=== PATIENT | male | born 1930 | race Caucasian/White ===

== ENCOUNTER 2016-06-11 17:55 | Inpatient (IN) | payer MEDICARE, OTHER ==
[~2016-06-11] VITALS: Ht 177.8 cm; Wt 67.9 kg
--- NOTE | ~2016-06-11 | HP ---
PATIENT'S NAME: DANIEL [facility] AGE: 86 Y [address] ROOM: [place] [address] LOCATION: [facility] ADMIT DATE: 06/11/2016 History & Physical DISCHARGE DATE: FAMILY PHYSICIAN: Erick Samaniego MD ATTENDING PHYSICIAN: CANDELARIA RUBIO DATE OF SERVICE: CHIEF COMPLAINT: Mechanical fall. HISTORY OF PRESENT ILLNESS: This is obtained entirely from the accompanying records and ER records. The patient is an 86-year-old male with past medical history as below, who sustained an unwitnessed mechanical fall at a correction facility earlier today. In the ER, he was found to have a right hip fracture, though full x-ray report is not available yet. At this point, the patient does not endorse any chest pain, shortness of breath, nausea, vomiting, diarrhea, chest pain, palpitations, though he is quite demented and alert and oriented x1. REVIEW OF SYSTEMS: All systems have been reviewed to the best of my ability given the patient's dementia and are negative aside from pertinent positives mentioned above. PAST MEDICAL HISTORY: As extracted from accompanying medical records is, 1. Dementia. 2. Coronary artery disease, status post CABG. 3. Paroxysmal atrial fibrillation, on Eliquis. 4. Ischemic cardiomyopathy with an EF of 45%. 5. Dual chamber pacemaker. 6. Benign prostatic hyperplasia. CURRENT MEDICATIONS: 1. Acetaminophen 325. 2. Apixaban 2.5 b.i.d. 3. Aspirin 81. 4. Carboxymethylcellulose. 5. Cholecalciferol. 6. Diltiazem 180 daily. 7. Q-Tussin as needed. PATIENT'S NAME: DANIEL [facility] AGE: 86 Y [address] ROOM: [place] [address] LOCATION: [facility] ADMIT DATE: 06/11/2016 History & Physical DISCHARGE DATE: FAMILY PHYSICIAN: Erick Samaniego MD ATTENDING PHYSICIAN: CANDELARIA RUBIO 8. Levothyroxine 25. 9. Memantine 10 twice a day. 10. Remeron 50 at bedtime. 11. Nitroglycerin as needed. 12. Zocor 40. 13. PreserVision daily. SOCIAL HISTORY: Cannot be obtained due to dementia. FAMILY HISTORY: Cannot be obtained due to dementia. PHYSICAL EXAMINATION: VITAL SIGNS: In the ER, the patient's vital signs were blood pressure 121/68, weight is 71, pulse 93, respirations 18, temperature 97.3, and saturating 92% on room air. GENERAL: Appears as an elderly, flail male, in no acute distress. NEUROLOGICAL: Nonfocal. EYES: Pupils are equal and reactive to light. LYMPHATIC: No cervical lymphadenopathy. ENDOCRINE: No thyromegaly. LUNGS: Clear to auscultation in all solorzano. HEART: Rate is irregularly irregular with no appreciable murmurs, gallops, or rubs. ABDOMEN: Soft, nontender. : No costovertebral angle tenderness. VASCULAR: 2+ pedal pulses. MUSCULOSKELETAL: Deferred. SKIN: Warm and dry. PSYCHIATRIC: The patient is alert and oriented x1. DIAGNOSTIC DATA: Review of the studies from the ER significant for an EKG which shows sinus rhythm with on demand atrial pacing and a right bundle-branch block. Chest x- ray shows some bibasilar scarring versus atelectasis. Lab results are unremarkable. ASSESSMENT AND PLAN: This is an 86-year-old male who has been admitted with mechanical fall and right hip fracture. Individual problems to be addressed as follows: 1. Preoperative optimization. At this point, the patient appears to be well compensated cardiac gabriel. I think getting a perioperative echo would be helpful in managing him postop, though I do not think he needs any further optimization prior to surgery. He is however on Eliquis and we PATIENT'S NAME: FRANTZ SANCHEZ [facility] AGE: 86 Y [address] ROOM: [address] [address] LOCATION: [facility] ADMIT DATE: 06/11/2016 History & Physical DISCHARGE DATE: FAMILY PHYSICIAN: Erick Samaniego MD ATTENDING PHYSICIAN: CANDELARIA RUBIO will defer to the Orthopedic Surgery the amount of time needed to wait for the surgery to be performed. 2. Paroxysmal atrial fibrillation, on anticoagulation. Anticoagulation will be held. We will continue the patient on Cardizem and monitor his heart rate and blood pressures. 3. History of ischemic cardiomyopathy. He appears well compensated. We will continue him on his current medical regimen. 4. History of dementia. Continue on Namenda. I think it would be worthwhile to address his goal status once the family arrives. 5. Symptomatic control. We will provide the patient with gentle doses of opioids as he is not terribly uncomfortable right now as well as with antiemetics and stool regimen. Additional management will depend on clinical course. Time dedicated to this patient's encounter is 25 minutes. MD YAN RING/sanya /[id number] D: [id number] T: [id number] HISTORY & PHYSICAL
--- NOTE | ~2016-06-11 | CON ---
PATIENT'S NAME: EVER [facility] AGE: 86 Y [address] ROOM: [address] [address] LOCATION: [facility] [place] ADMIT DATE: 06/11/2016 Consultation DISCHARGE DATE: FAMILY PHYSICIAN: Erick Samaniego MD ATTENDING PHYSICIAN: CANDELARIA RUBIO DATE OF CONSULTATION: 06/12/2016 REFERRING PHYSICIAN: CONNIE CALL MD CHIEF COMPLAINT: Right hip and groin pain. HISTORY OF PRESENT ILLNESS: Ever is a pleasant 86-year-old, gentleman who sustained an unwitnessed mechanical fall at a correction facility yesterday afternoon. The patient has severe dementia at baseline, though does confer that he does have right hip pain. He is accompanied by his , Spring, who is also a patient of mine. She reports that though the fall was unwitnessed, he has been found down on more than one occasion. It has been difficult for the facility to discern whether or not these are mechanical falls, or if the patient actually gets down onto his knees on his own accord. The reports that on one occasion, he was found down, and reported that he was changing a tire, despite the fact that he was sitting in his room in the assisted living facility. He was brought to the emergency room and plain x-rays of the right hip were obtained. The ER physician evaluating the patient diagnosed him with a right hip fracture. Currently, the patient denies any constitutional symptoms such as fever, chills, or night sweats. He also denies any dizziness, chest pain, shortness of breath, blurred vision, nausea, vomiting, or diarrhea. The patient denies any previous trauma to the right hip or surgery. His reports that he is an independent ambulator at baseline, not requiring use of any durable medical equipment. REVIEW OF SYSTEMS: A 10-point review of systems is otherwise as mentioned above. The patient issue is musculoskeletal, and pertains to the right lower extremity. He has hip and groin pain and discomfort with motion at the level of the hip. PAST MEDICAL HISTORY: Severe dementia; coronary artery disease, status post CABG; paroxysmal atrial fibrillation, on Eliquis; ischemic cardiomyopathy with an ejection fraction of 45%; dual-chamber pacemaker; benign prostatic hyperplasia. PAST SURGICAL HISTORY: PATIENT'S NAME: DANIEL, [facility] AGE: 86 Y [address] ROOM: [place] [address] LOCATION: [facility] [place] ADMIT DATE: 06/11/2016 Consultation DISCHARGE DATE: FAMILY PHYSICIAN: Erick Samaniego MD ATTENDING PHYSICIAN: CANDELARIA RUBIO CABG. CURRENT MEDICATIONS: 1. Acetaminophen. 2. Apixaban. 3. Aspirin. 4. Carboxymethylcellulose. 5. Calciferol. 6. Diltiazem. 7. Q-Tussin. 8. Levothyroxine. 9. Memantine. 10. Remeron. 11. Nitroglycerin. 12. Zocor. 13. PreserVision. SOCIAL HISTORY: The denies any use of alcohol, tobacco, or illicit drug use. FAMILY HISTORY: There is history of hypertension and heart disease on his side of the family. PHYSICAL EXAMINATION: VITAL SIGNS: Temperature of 97.3, pulse is 93, blood pressure 121/68, O2 saturation 92% on room air, weight is 71 kilos. GENERAL: The patient is awake and alert x2. He is in no acute distress. He is not conversing with me. HEENT: Normocephalic and atraumatic. Extraocular movements are intact. PERRLA. Moist mucous membranes. The oropharyngeal airway is clear. NECK: Supple. Trachea is in the midline. CARDIOVASCULAR: Regular rate and rhythm. CHEST: Normal symmetric respirations were observed bilaterally. ABDOMEN: Soft, nontender, and nondistended. PELVIS: Stable. MUSCULOSKELETAL: Right lower extremity, focal examination of the patient's right lower extremity reveals that he is grossly neurologically intact distally. There is palpable dorsalis pedal and posterior tibial pulses. The patient was actively able to dorsiflex and plantar flex the ankle and range his toes. He has a positive log roll test. This elicits pain and discomfort at the level of the hip. There is pain with manipulation of the right hip as well. Compartments of the thigh, leg, and foot are soft. Left lower extremity: Focal examination of the patient's left lower extremity reveals that he is grossly neurologically intact distally. Compartments of the thigh, leg, and foot are soft. There is palpable dorsalis pedal and posterior tibial PATIENT'S NAME: DANIEL [facility] AGE: 86 Y [address] ROOM: [address] [place] [id number] LOCATION: [facility] [place] ADMIT DATE: 06/11/2016 Consultation DISCHARGE DATE: FAMILY PHYSICIAN: Erick Samaniego MD ATTENDING PHYSICIAN: CANDELARIA RUBIO pulses. Good capillary refill in the toes. The patient is actively able to dorsiflex and plantar flex his left ankle and range his toes. Sensation is intact to light touch bilaterally through the SPN/DPN and tibial nerve distributions. LABORATORY VALUES: CBC: Hemoglobin of 12.2, hematocrit of 37.8, white blood cell count of 9.5, platelet count of 142. Chem-7 reveals sodium of 144, potassium 4.2, chloride of 110, CO2 of 27, BUN 29, creatinine 1.0, and glucose of 87. IMAGING STUDIES: Plain radiographs of the right hip were obtained. There is evidence of a nondisplaced transcervical fracture of the femoral neck. IMPRESSION: Right nondisplaced transcervical fracture of the femoral neck. PLAN: I had a long discussion with the patient and the patient's who makes his medical decisions at the bedside. I explained the patient broke his hip. I am recommending a closed reduction and pinning procedure today. I have discussed the risks, benefits, and alternatives of pursuing a surgical intervention with the patient and his in detail. I have discussed the risks of anesthesia, infection, bleeding, and/or injury to neurovascular structures about the right lower extremity. They have expressed understanding of this. They have elected to proceed with surgery. Currently, the patient is awaiting completion of a medical workup. We are awaiting the results of a 2D echo being performed this morning. Provided the patient is cleared, we will proceed with surgery as soon as this afternoon. He is currently n.p.o. He will remain on bed rest for now. There is a Martino catheter in place. DVT prophylaxis in the form of Eliquis will be held going forward. I do not feel that it would be gabriel to delay treatment on account of the fact that he is anticoagulated with Eliquis at this time. His weightbearing status postoperatively may be a challenge seeing that the patient is unable to follow commands. He would otherwise be toe-touch weightbearing after surgery, with use of a rolling walker. I discussed my concerns with the patient's regarding his postoperative weightbearing status. She expressed understanding of this. I have answered all of their questions today at the bedside to their satisfaction. We will await medical clearance to proceed with surgery as soon as feasible. CONNIE CALL MD PATIENT'S NAME: EVER [facility] AGE: 86 Y [address] ROOM: [place] [address] LOCATION: [facility] [place] ADMIT DATE: 06/11/2016 Consultation DISCHARGE DATE: FAMILY PHYSICIAN: Erick Samaniego MD ATTENDING PHYSICIAN: CANDELARIA RUBIO/adyl /[id number] d: 06/12/16 0953 t: 06/12/16 1252, CONSULTATION REPORT
--- NOTE | ~2016-06-11 | DS ---
PATIENT'S NAME: FRANTZ SANCHEZ [facility] AGE: 86 Y [address] ROOM: [place] [address] LOCATION: [facility] ADMIT DATE: 06/11/2016 Discharge Summary DISCHARGE DATE: 06/21/2016 FAMILY PHYSICIAN: Erick Samaniego MD ATTENDING PHYSICIAN: Niecy Haider PRINCIPAL DIAGNOSES: 1. Right nondisplaced transcervical fracture of the femoral neck, status post closed reduction and percutaneous pinning. 2. Alzheimer dementia. 3. Paroxysmal atrial fibrillation, on long-term anticoagulation. 4. History of coronary artery disease. 5. History of permanent pacemaker. 6. Chronic congestive heart failure, systolic. 7. Dyslipidemia. 8. Hypothyroidism. HOSPITAL COURSE: Please reference any of the admitting data to the history and physical as dictated by Dr. Jose Tinajero. Briefly, an 86-year-old male with a significant history of Alzheimer dementia, residing at an Alzheimer's Unit, had an unwitnessed mechanical fall suffering a right hip fracture. Admitted by Hospitalist Service, and given risk stratification for anticipated operative fixation of the right hip fracture. A 2D echo showed left ventricular ejection fraction of 40% to 45%. There was [id number] concentric left ventricular hypertrophy, with severe dilation of the right atrium. There was also noted mild pulmonary hypertension. The patient appeared to be euvolemic and optimal for surgery. Orthopedic consultation was obtained. Risks, benefits, and alternatives were discussed. The patient was given preoperative Ancef, and taken to surgery on June 12, where he underwent a closed reduction and percutaneous pinning of the right hip, with the operative films showing proper alignment. Fractured hip postop order sets were utilized. His weightbearing status was toe-touch weightbearing. Physical therapy was ordered, and he was given postoperative Ancef for three doses. In the postoperative phase, the patient did go into atrial fibrillation with a rapid ventricular rate. He was given a Cardizem bolus, as well as IV Lopressor and his electrolytes were optimized. A Cardiology consultation was obtained, and Cardizem drip was started. The DVT prophylactic Lovenox was transitioned to a heparin drip per ACS protocol. By 06/16/2016, his rates were well controlled, and he was taking oral adequately. So, he was started on Eliquis and heparin drip stopped without any complications. His rate controlling medicines were optimized, and he had no further complications. PATIENT'S NAME: FRANTZ SANCHEZ [facility] AGE: 86 Y [address] ROOM: [id number] [place], [place] [address] LOCATION: [facility] ADMIT DATE: 06/11/2016 Discharge Summary DISCHARGE DATE: 06/21/2016 FAMILY PHYSICIAN: Erick Samaniego MD ATTENDING PHYSICIAN: Niecy Haider Also, postoperatively, the patient did have some delirium on top of his dementia causing some behavioral issues in which the patient required some as needed Zyprexa. His narcotic regimen was minimized to just Tylenol with good control. He also had complications following commands with his swallow, so a Speech Therapy consultation was added, which helped both with his swallowing cognitively to the point where he continued to make progress over the next few days. Because of his toe-touch weightbearing status and decreased mobility, his Assisted Living Facility was unable to meet his needs. So, a Residential Facility placement was ordered. Care Management assisted with this and was able to arrange on day of discharge. LABORATORY FINDINGS: Most recent CBC on 06/18/2016 showed a white blood cell count of 5.5, hemoglobin of 11.3; this is up from 10.7 postoperatively, hematocrit of 35.0, and platelet count of 185, up from 118. Most recent chemistry panel showed a glucose of 102, BUN of 19, creatinine of 0.7, sodium of 146, potassium of 4.1, chloride of 110, CO2 of 29, calcium of 8.8, magnesium of 2.1, and GFR greater than 60. Urinalysis showed clear, yellow urine with a specific gravity of 1.025, pH of 6.0, leukocytes negative, nitrites negative, proteins negative, glucose negative, ketones negative, urobilinogen 1, bilirubin negative, blood 10, white blood cells rare, red blood cells of 2 to 5, epithelial of 0 to 2, and bacteria rare. Pre-albumin level was 16. IMAGING: Radiologic imaging showed initial right hip x-ray showing an impacted right femoral neck fracture. Preoperative chest x-ray film with no acute abnormalities. CT of the brain was normal. Postoperative films showed proper anatomic alignment. Postoperative films of chest x-ray was stable and non-acute. Postoperative films of KUB were non-specific, obstruction was not apparent. Echocardiogram: LVEF of 40% to 45% with left ventricle normal in size. There was moderate to severe concentric left ventricular hypertrophy. Diastolic function was indeterminate due to the patient's arrhythmia. There was moderately dilated right ventricle and moderately reduced right ventricular function. The right atrium was severely dilated. There was mild pulmonary hypertension, and the ascending aorta appeared mildly dilated. DISCHARGE MEDICATIONS: 1. Tylenol 500 mg p.o. three times daily. 2. Eliquis 5 mg p.o. twice daily. 3. Aspirin 81 mg p.o. daily. 4. Cardizem 60 mg p.o. three times daily. PATIENT'S NAME: FRANTZ SANCHEZ [facility] AGE: 86 Y [address] ROOM: [id number] [place], [place] [address] LOCATION: [facility] ADMIT DATE: 06/11/2016 Discharge Summary DISCHARGE DATE: 06/21/2016 FAMILY PHYSICIAN: Erick Samaniego MD ATTENDING PHYSICIAN: Niecy Haider 5. Docusate sodium 100 mg p.o. everyday. 6. Levothyroxine 25 mcg p.o. everyday before breakfast. 7. Senna 5 mL p.o. twice daily. 8. Zocor 40 mg tablet, 0.5 tablet p.o. every night at bedtime. 9. Triamcinolone 0.1% cream, apply sparingly topically to areas of eczema daily. 10. Tylenol 650 mg p.o. every six hours as needed. 11. Q-Tussin DM syrup 5 mL to 10 mL p.o. every four hours as needed for cough or congestion. 12. Nitrostat 0.4 mg sublingual as needed one tablet every five minutes of three doses for chest pain. 13. Ultram 50 mg p.o. every eight hours as needed. 14. Hydrocortisone cream 1% to be applied to the affected areas once to twice daily as needed. 15. Namenda 10 mg p.o. twice daily. 16. Remeron 15 mg p.o. every night at bedtime. 17. PreserVision softgels capsules, one capsule p.o. twice daily. 18. Refresh Tears one drop to each eye three times daily. 19. Vitamin D3, 1000 units p.o. everyday. DISCHARGE INSTRUCTIONS: The patient will be discharged to [facility] under the care of his current primary care doctor, Dr. Erick Samaniego. Dr. Samaniego has been following socially and has been updated on the line of management of the patient during his hospitalization. He will need followup with Dr. Ashley in two weeks and Dr. Sweet in 2 to 4 weeks. Code status is full code. Diet should be mechanical soft with ground meat and extra gravies with nectar liquids. Recommendations were made for no straws and significant aspiration precautions. Health supplement is three times daily and as needed. Weightbearing status is toe-touch weightbearing to the right lower extremity with occupational, physical, and speech therapy to evaluate and treat the patient as indicated. Dressing of the right hip should be changed as needed for swelling or looseness. To call Orthopedics with any questions regarding the dressing changes. His rehab potential is poor. His discharge potential is poor. The patient and the family are well aware of his condition and prognosis. The above line of management was discussed with the patient and his spouse. Because of the patient's cognition, the spouse stated complete understanding of the plan. All questions were answered with statements of understanding. Total time arranging discharge was greater than 30 minutes. PATIENT'S NAME: FRANTZ SANCHEZ [facility] AGE: 86 Y [address] ROOM: [place] [address] LOCATION: [facility] ADMIT DATE: 06/11/2016 Discharge Summary DISCHARGE DATE: 06/21/2016 FAMILY PHYSICIAN: Erick Samaniego MD ATTENDING PHYSICIAN: Niecy Haider Thank you for allowing us to participate in the care of this patient while at [facility]. Chantelle MOORE APRN, APRN FOR MD MARQUES CADE/sanya /[id number] CC: Erick Samaniego MD d: t: 06/22/16 0757, DISCHARGE SUMMARY
--- NOTE | ~2016-06-11 | CON ---
PATIENT'S NAME: [facility]EL [facility] AGE: 86 Y [address] ROOM: [place] [address] LOCATION: [facility] ADMIT DATE: 06/11/2016 Consultation DISCHARGE DATE: FAMILY PHYSICIAN: Erick Samaniego MD ATTENDING PHYSICIAN: CANDELARIA RUBIO DATE OF CONSULTATION: 06/14/2016 REFERRING PHYSICIAN: CONNIE CALL MD REASON FOR CARDIOLOGY CONSULTATION: Atrial fibrillation with rapid ventricular response. HISTORY OF PRESENT ILLNESS: This is an 86-year-old male, transferred from an outside hospital after a right hip fracture from an unwitnessed fall. The patient currently lives in a [facility] facility due to advanced dementia. History is obtained from his and daughter and chart review due to his advanced dementia. His previous history includes coronary artery disease with coronary artery bypass grafting, paroxysmal atrial fibrillation with long-term anticoagulation on Eliquis, ischemic cardiomyopathy, as well as a dual-chamber pacemaker. He regularly follows with [facility] on a yearly basis, and he was last seen in January of 2016 at which time, he was started on the Eliquis due to increased episodes of paroxysmal atrial fibrillation. At the time of this consult, he is resting comfortably in bed, but is mildly agitated with assessment. He does calm easily with a presence of his daughter. He does not answer orientation questions and does not follow commands appropriately. He does appear to be in atrial fibrillation with rapid ventricular response on his monitoring engineer, but is showing no acute ST changes and once again, appears to be resting comfortably without signs of pain or shortness of breath when not being stimulated. PAST MEDICAL HISTORY: From chart review, as listed in the HPI, as well as advanced dementia and benign prostatic hypertrophy. SURGICAL HISTORY: From chart review: 1. Appendectomy. 2. Coronary artery bypass grafting. 3. Prostatectomy. 4. [employer] pacemaker insertion. 5. Bilateral cataract removal. SOCIAL HISTORY: From chart review. The patient was a former smoker when he was in the PATIENT'S NAME: [facility] AGE: 86 Y [address] ROOM: [place] [address] LOCATION: [facility] ADMIT DATE: 06/11/2016 Consultation DISCHARGE DATE: FAMILY PHYSICIAN: Erick Samaniego MD ATTENDING PHYSICIAN: CANDELARIA RUBIO service. states he quit many years ago. No noted history of alcohol or illicit drug use. CURRENT MEDICATIONS: 1. Aspirin 81 mg p.o. daily. 2. Cardizem 180 mg p.o. daily. 3. Colace 100 mg p.o. 3 times daily. 4. Potassium phosphate 1 tablet p.o. 3 times daily. 5. Levothyroxine 25 mcg p.o. daily. 6. Namenda 10 mg p.o. twice daily. 7. Remeron 15 mg p.o. daily in the evening. 8. Multivitamin 1 tablet p.o. daily. 9. Vitamin D 1000 units p.o. daily. 10. Zocor 20 mg p.o. daily in the evening. 11. Lovenox 40 mg subcu daily. MEDICATION ALLERGIES: No known medication allergies. REVIEW OF SYSTEMS: Unable to be fully evaluated due to the patient's neurologic status. PHYSICAL EXAMINATION: VITAL SIGNS: Temperature 98.8, pulse 135, respirations 18, blood pressure 113/67, and O2 saturation 93% on 3 L nasal cannula. The patient weighs 70 kg. SKIN: [place], warm, and dry. HEENT: Eyes: Sclerae clear. No xanthelasmas. ENT: Oral mucosa is pink and moist. No jugular venous distention. No carotid bruits. CHEST: Respirations are even and unlabored. Lung sounds do show fine bibasilar crackles as well as a slight expiratory wheeze. HEART: Irregular rate and rhythm. Normal S1, S2. Once again, he is in an atrial fibrillation with rapid ventricular response. ABDOMEN: Soft and nontender. MUSCULOSKELETAL: Moves all 4 extremities spontaneously. Does not follow instructions to do a full strength evaluation to upper and lower extremities. EXTREMITIES: Peripheral pulses palpable. No clubbing or cyanosis noted. Does have trace lower extremity edema present. PSYCH: Unable to follow commands and will not answer orientation questions. Overall, there is very little verbal response even when conversing with his daughter. IMPRESSION AND PLAN: Per Dr. Sweet: 1. Atrial fibrillation with rapid ventricular response. The patient is normally well controlled with p.o. Cardizem. He is currently off his PATIENT'S NAME: FRANTZ SANCHEZ [facility] AGE: 86 Y [address] ROOM: [place] [address] LOCATION: [facility] ADMIT DATE: 06/11/2016 Consultation DISCHARGE DATE: FAMILY PHYSICIAN: Erick Samaniego MD ATTENDING PHYSICIAN: CANDELARIA RUBIO due to his recent hip surgery. The patient is also not taking medications at this time. When he is given oral contents including medications or food, he does spit the contents back out immediately. We will start a Cardizem drip per protocol with no bolus for rate control. Due to his closeness to hypotension, once again we will not proceed with a bolus. 2. Right hip fracture. He is currently postop day #2 from a closed reduction and percutaneous pin. 3. Ischemic cardiomyopathy with a last known ejection fraction of 40-45%. No signs of acute decompensation as well as no signs of chest pain. 4. Advanced dementia. The patient is a DNR/DNI and the family requests no intensive procedures at this time. We will attempt to control his rate at this time for comfort. We will continue to monitor, evaluate, and treat as appropriate. Thank you for this consult. Thank you for allowing [facility] to interact in the care of this patient. ERIKA ENRIQUEZ APRN FOR [facility]IN[facility]MD CHEN CARL/adyl /[id number] d: 06/14/16 2256 t: 06/30/16 0839, CONSULTATION REPORT
--- NOTE | ~2016-06-11 | ER ---
PATIENT'S NAME: DANIEL [facility] AGE: 86 Y [address] ROOM: [place] [address] LOCATION: [facility] ADMIT DATE: 06/11/2016 ER/Outpatient Report DISCHARGE DATE: FAMILY PHYSICIAN: Erick Samaniego MD ATTENDING PHYSICIAN: CANDELARIA RUBIO Time of Arrival: 1755 hours. Time of Evaluation: 1807 hours. HISTORY OF PRESENT ILLNESS: The patient is an 86-year-old male who lives at [facility]. He has dementia and was found on the floor after an unwitnessed ground level fall. The patient able initially to bear weight, but the right hip pain persists and so EMS was called. The fall was about 1520. On arrival, the patient has significant of dementia that he is not able to give a history of what happened. It is unknown if he hit his head and he is anticoagulated. PAST MEDICAL HISTORY: ALLERGIES: NO KNOWN DRUG ALLERGIES. CURRENT MEDICATIONS: 1. Acetaminophen 325 mg 1-2 tablets every 4 hours as needed. 2. Aspirin 81 mg daily. 3. Diltiazem 180 mg CD daily. 4. Eliquis 2.5 mg b.i.d. 5. Hydrocortisone cream with aloe 1% one to two times daily. 6. Levothyroxine 25 mcg daily. 7. Memantine 10 mg b.i.d. 8. Mirtazapine 15 mg at bedtime. 9. Nitroglycerin 0.4 mg p.r.n. 10. PreserVision 1 cap twice daily. 11. Q-Tussin DM syrup 5-10 mL every 4 hours as needed. 12. Refresh tears 1 drop 3 times daily each eyes. 13. Simvastatin 40 mg 1/2 tablet at bedtime. 14. Vitamin D3 1000 international units daily. MEDICAL PROBLEMS: Coronary artery disease, BPH, COPD, hyperlipidemia, hypertension, dementia. Code status is unknown. PRIOR SURGERIES: Dual chamber pacemaker. PATIENT'S NAME: DANIEL [facility] AGE: 86 Y [address] ROOM: [place] [address] LOCATION: [facility] ADMIT DATE: 06/11/2016 ER/Outpatient Report DISCHARGE DATE: FAMILY PHYSICIAN: Erick Samaniego MD ATTENDING PHYSICIAN: CANDELARIA RUBIO REVIEW OF SYSTEMS: Unable to obtain from the patient with his dementia. SOCIAL HISTORY: The patient is . His lives in [place]. He is currently living at [facility] due to his dementia. Tobacco use, denies. Alcohol use, denies. Drug use, denies. PHYSICAL EXAMINATION: VITAL SIGNS: Weight 71 kg. Blood pressure 121/68, pulse 93, respirations 18, temperature 97.3, sats 92% on room air. GENERAL: An 86-year-old male in no acute distress. HEENT: Head: Normocephalic, atraumatic. Ears: TMs translucent both ears. Eyes: Pupils equal and reactive to light and accommodation. Extraocular movements intact. Nose: Mucosa pink. No lesions. Mouth: No lesions. Pharynx benign. NECK: Supple. No lymphadenopathy. LUNGS: Clear to auscultation. HEART: Regular rate and rhythm. ABDOMEN: Soft, nondistended, nontender. SKIN: [place], warm, and dry. No lesions or rashes noted. NEURO: The patient is alert, but not oriented to person, place, or time or situation. Cranial nerves 2 through 12 grossly intact. Motor strength 5/5 throughout. Sensation is intact to light touch. The patient is tender to palpation over the right hip and tender on pelvic rock. He is tender to the right hip with internal and external rotation, flexion and extension. He has good distal pulses. DIAGNOSTIC DATA: Pelvis and right hip x-ray reveals a right femoral neck fracture with no displacement, pending Radiology over-read. Pre-albumin 16, sodium 144, potassium 4.2, chloride 110, CO2 of 27, BUN 29, creatinine 1.0, blood sugar 87. Hemoglobin 12.2, hematocrit 37.8, platelets 142. White count 9.5 with a normal differential. INR 1.08. EKG paced rhythm, 75 beats per minute, right bundle branch block. No previous EKG available for comparison. Chest x-ray, pacemaker left upper chest, post-sternotomy changes, no acute process; pending Radiology over-read. Head CT, normal CT for age. IMPRESSION AND PLAN: 1. Right femoral neck fracture. 2. The patient will be admitted by Dr. Rubio hospitalist for preop clearance and Dr. Ashley has been notified and will consult. 3. Paroxysmal atrial fibrillation with pacemaker and chronic anticoagulation. 4. Dementia. PATIENT'S NAME: FRANTZ SANCHEZ [facility] AGE: 86 Y [address] ROOM: [place] [address] LOCATION: [facility] ADMIT DATE: 06/11/2016 ER/Outpatient Report DISCHARGE DATE: FAMILY PHYSICIAN: Erick Samaniego MD ATTENDING PHYSICIAN: CANDELARIA RUBIO 5. Mild thrombocytopenia. Platelet count 142. Previous platelet count on 08/04/2015 was 157. BRAXTON KAY MD CAR/modl /[id number] d: 06/12/16 0353 t: 06/12/16 0432, OUTPATIENT REPORT
--- NOTE | ~2016-06-11 | OR ---
PATIENT'S NAME: DANIEL [facility] AGE: 86 Y [address] ROOM: [place] [address] LOCATION: [facility] ADMIT DATE: 06/11/2016 OR/Procedure Report DISCHARGE DATE: FAMILY PHYSICIAN: Erick Samaniego MD ATTENDING PHYSICIAN: CANDELARIA RUBIO SURGEON: Connie Call MD SALES SUPPORT SPECIALIST: Faustino Perez PA-C. DATE OF PROCEDURE: 06/12/2016 PREOPERATIVE DIAGNOSIS: Right minimally displaced subcapital femoral neck fracture. POSTOPERATIVE DIAGNOSIS: Right minimally displaced subcapital femoral neck fracture. PROCEDURES: 1. Closed reduction and percutaneous pinning of right hip. 2. Use of intraoperative fluoroscopy, less than 1 hour. ANESTHESIA: General endotracheal anesthesia. FLUIDS: See anesthesia report. ESTIMATED BLOOD LOSS: Minimal. TOURNIQUET: None. COMPLICATIONS: None. SPECIMENS: None. DISPOSITION: Stable in PACU. COUNTS: All counts correct. IMPLANTS: Synthes 7.3 mm partially threaded and cannulated screws x3. INDICATIONS: Mr. Marsh is a pleasant 86-year-old gentleman, who underwent the noted procedures above. The risks, benefits, and alternatives of pursuing surgical events were discussed with the patient in detail. It was also discussed with his because the patient does have dementia. They have elected to proceed with surgery. Anesthesia was consulted for their perioperative evaluation of the patient. I marked the right hip indicating the correct surgical site. PATIENT'S NAME: DANIEL [facility] AGE: 86 Y [address] ROOM: [place] [address] LOCATION: [facility] ADMIT DATE: 06/11/2016 OR/Procedure Report DISCHARGE DATE: FAMILY PHYSICIAN: Erick Samaniego MD ATTENDING PHYSICIAN: CANDELARIA RUBIO OPERATIVE REPORT IN DETAIL: The patient was taken from the holding area to the operating room. A time-out was performed. General endotracheal anesthesia administered. The patient was positioned on the [place] table. A time-out was performed. Ancef antibiotic was administered for perioperative prophylaxis. Preoperative images for closed reduction were obtained using fluoroscopy. The right lower extremity was then prepped and draped in a sterile fashion. I turned my attention to the right hip. I placed 3 screws in an inverted triangle fashion through a surgical incision on the lateral aspect of the hip. I confirmed the position of the screws fluoroscopically. They were subsequently measured, drilled forward, and placed. All three screws had adequate purchase. The head was stabilized and confirmed fluoroscopically. There appeared to be an osteophyte off the femoral head that appeared to obscure the fluoroscopic visualization, though I believe that the position of the partially threaded and cannulated screws was adequate. There was good bony purchase for the most part. The surgical site was irrigated and closed in layers beginning with Vicryl suture and emma for the skin. Final fluoroscopic images were taken, documenting a satisfactory closed reduction and percutaneous pinning of the right hip. The patient was then transferred up the Dresden table onto the hospital bed and extubated. He was brought to the recovery room in stable condition. There were no intraoperative complications noted. Of note, my PA, Faustino Perez PA-C, played an integral role in the intraoperative care of this patient. This included preoperative positioning, intraoperative expert retraction, and closing and dressing functions. IMPRESSION: The patient is status post the noted procedures above. PLAN: The patient will be toe-touch weightbearing on the right lower extremity. Postoperative antibiotics will be administered per routine. The hospitalist will continue to manage the patient's concomitant medical comorbidities. Physical Therapy and Occupational Therapy will be consulted for early ambulation and prevention of deconditioning. I will continue to monitor the patient closely in the postoperative period. DVT prophylaxis will be in the form of Lovenox or Eliquis. CONNIE CALL MD PATIENT'S NAME: FRANTZ MARSH [facility] AGE: 86 Y [address] ROOM: [place] [address] LOCATION: [facility] ADMIT DATE: 06/11/2016 OR/Procedure Report DISCHARGE DATE: FAMILY PHYSICIAN: Erick Samaniego MD ATTENDING PHYSICIAN: CANDELARIA RUBIO/sanya /[id number] d: 06/12/16 2355 t: 06/13/16 0813, OPERATIVE SUMMARY
--- NOTE | ~2016-06-11 | ECHO ---
Transthoracic Echocardiography Report (TTE) Demographics Patient Name FRANTZ SANCHEZ Date of Study 06/12/2016 Patient Number [id number] Visit Number [id number] Date of 1930 Room Number G3203 Accession Number [id number] Gender Male Age 86 year(s) Referring [facility] Erick Oh MD Outreach Specialist Lobo Chow RVT, Physician Vitaly Atkins [facility] MD Kenna Bazan Physician Interpreting Loere Marcum MD Pipe Manufacture Supervisor Physician Supervising Ordering Physician Tanvi Garcia MD/SARAH Perez MD Nurse Stress Fire Observer Conclusions Summary Technically difficult exam. The estimated left ventricular ejection fraction is 40-45%. The left ventricle is normal in size . Moderate to severe concentric left ventricular hypertrophy. Diastolic function indeterminate due to patient's arrhythmia. Moderately dilated right ventricle. Moderately reduced right ventricular function. The right atrium is severely dilated. Mild mitral annular calcification. Mild mitral regurgitation by color Doppler. Mild tricuspid regurgitation by color Doppler. There is mild pulmonary hypertension. The pulmonary pressure (RVSP) is 43 mmHg. The aortic root appears mildly dilated. The maximum diameter measures 3.4 cm. The ascending aorta appears mildly dilated. The maximum diameter measures 3.4 cm. Procedure Type of Study TTE procedure:2D Echocardiogram, M-Mode, Doppler , Color Doppler, Contrast study. Procedure Date Date: 06/12/2016 Start: 07:08 AM Study Location: Inpatient Portable Technical Quality: Limited visualization due to poor acoustical window. Indications:Pre surgical clearance, Coronary artery disease, History of CABG and Atrial fibrillation. Appropriate Use Criteria: 9 Patient Status: Routine Contrast Medium: Definity. Amount - 3 ml HR: 80 bpm M-Mode/2D Measurements LV Diastolic Dimension: 5.47 cm LV Systolic Dimension: 4.26 cm LV Septum Diastolic: 1.73 cm LV PW Diastolic: 1.65 cm AO Root Dimension: 3.4 cm Cardiac Output: 2.18 l/min AV Cusp Separation: 1.9 cm RV Diastolic Dimension: 3.3 cm LA volume: 35 ml LVOT: 2.3 cm RV Base: 4.56 cm LVOT VTI: 6.57 cm RV Mid: 3.3 cm LV Stroke volume: 27.28 ml TAPSE: 0.96 cm TDI-S': 9.21 cm/s Doppler Measurements AV Peak Velocity: 0.79 m/s MV Peak E-Wave: 0.47 m/s AV Peak Gradient: 2.46 mmHg AV Mean Gradient: 2 mmHg MV P1/2t: 75 msec LVOT Peak Velocity: 0.4 m/s TR Velocity:2.95 m/s PV Peak Velocity: 0.77 m/s TR Gradient:34.81 mmHg PV Peak Gradient: 2.36 mmHg Estimated RAP:8 mmHg Estimated PASP: 42.81 mmHg Estimated RVSP: 43 mmHg A' Septal Velocity: 0.09 m/s E' Septal Velocity: 0.06 m/s A' Lateral Velocity: 0.1 m/s E' Lateral Velocity: 0.08 m/s Findings Left Ventricle The left ventricle is normal in size . Moderate to severe concentric left ventricular hypertrophy. Diastolic function indeterminate due to patient's arrhythmia. Inferoposterior wall shows moderate hypokinesis Right Ventricle Moderately dilated right ventricle. Moderately reduced right ventricular function. Device lead noted in the right ventricle. Left Atrium Normal left atrial size. Right Atrium The right atrium is severely dilated. Patient unable to perform sniff test to determine right atrial pressure. Mitral Valve Mild mitral annular calcification. Mild-moderate mitral regurgitation by color Doppler. Aortic Valve The aortic valve is mildly sclerotic. Tricuspid Valve Mild tricuspid regurgitation by color Doppler. There is mild pulmonary hypertension. The pulmonary pressure (RVSP) is 43 mmHg. Pulmonic Valve The pulmonic valve is not well visualized. Pericardial Effusion No evidence of pericardial effusion. Miscellaneous The aortic root appears mildly dilated. The maximum diameter measures 3.4 cm. The ascending aorta appears mildly dilated. The maximum diameter measures 3.4 cm. Pleural Effusion No evidence of pleural effusion. Contractility Score LV regional wall motion:(0-Non visualized 1-Normal 2-Hypokinesis 3-Akinesis 4-Dyskinesis 5-Aneurysm) Signature dtt: Jossue Ralph (cardio) dtd: 06/12/16 0708 Physician Self Edit
[2016-06-11 18:59] LABS: BASOPHIL % 0.2 %; EOSINOPHIL # 0.1 K/uL (0.0-0.5); EOSINOPHIL % 1.5 %; HEMATOCRIT 37.8 % (33.0-50.0); HEMOGLOBIN 12.2 g/dL (11.0-16.0); IMMATURE GRANULOCYTE # 0.1 K/uL (0.0-0.3); IMMATURE GRANULOCYTE % 0.7 %; LYMPHOCYTE # 0.9 K/uL (0.8-4.0); LYMPHOCYTE % 9.5 %; MCH 28.7 pg (27.0-34.0); MCHC 32.3 gm/dL (32.0-36.5); MCV 88.9 fl (83.0-98.0); MONOCYTE # 0.8 K/uL (0.0-1.0); MONOCYTE % 8.4 %; MPV 9.7 fl (9.4-12.4); NEUTROPHIL # (ANC) 7.5 K/uL (1.4-9.0); NEUTROPHIL % 79.7 %; NRBC % 0 /100WBC (0-0.00); PLATELET COUNT 142 K/uL (150-450); RBC 4.25 M/uL (3.50-5.50); RDW-CV 12.4 % (11.9-14.6); WBC 9.5 K/uL (4.0-11.0)
[2016-06-11 19:08] LABS: INR - (THERAPEUTIC) 1.08 (0.92-1.07); PROTIME 11.3 SECONDS (9.8-11.4); PTT 30 SECONDS (25-32)
[2016-06-11 19:12] LABS: ALBUMIN 3.4 gm/dL (3.5-5.0); ANION GAP 11.2 (10.0-19.0); BLOOD UREA NITROGEN 29 mg/dL (6-24); CALCIUM 8.4 mg/dL (8.5-10.5); CHLORIDE 110 mMol/L (96-110); CO2 27 mMol/L (22-32); ESTIMATED GFR (MDRD EQUATION) > 60; PHOSPHORUS 2.4 mg/dL (2.5-4.9); POTASSIUM 4.2 mMol/L (3.7-5.1); SODIUM 144 mMol/L (135-145)
[2016-06-11 19:47] LABS: BILIRUBIN URINE NEGATIVE (NEGATIVE); BLOOD URINE 10 /UL (NEGATIVE); COLOR URINE YELLOW (YELLOW); GLUCOSE URINE NEGATIVE (NEGATIVE); KETONE URINE NEGATIVE (NEGATIVE); LEUKOCYTES URINE NEGATIVE /UL (NEGATIVE); NITRITE URINE NEGATIVE (NEGATIVE); PROTEIN URINE NEGATIVE (NEGATIVE); SPEC GRAVITY URINE 1.025 (1.003-1.035); TURBIDITY URINE CLEAR (CLEAR); UROBILINOGEN URINE 1 mg/dL (NORMAL)
[2016-06-11 19:55] LABS: BACTERIA URINE RARE (NEGATIVE); EPITHELIAL URINE 0-2 #/HPF (NEGATIVE); WBC URINE RARE #/HPF (NEGATIVE)
[2016-06-11] MEDS ORDERED: TYLENOL325 MG PO (20:30)
[2016-06-11] MEDS ORDERED: CARDIZEM CD)(T180 MG PO (20:32)
[2016-06-11] MEDS ORDERED: ASPIRIN LO-DOSE81 MG PO (20:32)
[2016-06-11] MEDS ORDERED: ELIQUIS2.5 MG PO (20:33)
[2016-06-11] MEDS ORDERED: HYDROCORT 1% CR30 GM TOP (20:35)
[2016-06-11] MEDS ORDERED: LEVOTHROID (SY25 MCG PO (20:37)
[2016-06-11] MEDS ORDERED: NAMENDA10 MG PO (20:38)
[2016-06-11] MEDS ORDERED: REMERON15 MG PO (20:38)
[2016-06-11] MEDS ORDERED: PRESERVISION A1 EACH PO (20:40)
[2016-06-11] MEDS ORDERED: NITROSTAT0.4 MG SL (20:40)
[2016-06-11] MEDS ORDERED: Q-TUSSIN DM SY473 ML PO (20:42)
[2016-06-11] MEDS ORDERED: REFRESH TEARS15 ML OPHTH (20:43)
[2016-06-11] MEDS ORDERED: ZOCOR40 MG PO (20:44)
[2016-06-11] MEDS ORDERED: VITAMIN D1000 UNIT PO (20:45)
--- NOTE | 2016-06-12 00:57 | NUR ---
SIGNIFICANT EVENT: Patient drowsy, disoriented d/t dementia. VSS on RA. Admitted to floor at approx 2015 for R) femoral neck (hip) fx. PO meds attempted but pt refusing at this time. NPO after MN d/t possible surgery today. Cardiac diet. PIV to L) wrist is SL. 2D echo scheduled this a.m. for preop/surgery clearance. Have not received return call from spouse, database 1 will need clarifications. Toe touch weight bearing on R) side - rested in bed this shift and came to floor by bed. FollowUp: Need clarification of Code Status, Advance Directives, Allergies.
--- NOTE | 2016-06-12 02:36 | NUR ---
Patient admitted to floor at approx. 2015 - inpatient status for hospitalist. Consult with Dr Ashley for R) femoral neck fracture, possible surgery tomorrow. Patient fell at senior living - [facility]. Hx of CAD, BPH, COPD, Hyperlipidemia, Dementia, Essential Htn. Attempted to reach spouse, Spring, for information regarding part 1 assessment information - left voicemail, no return call at this point. Patient is poor historian d/t dementia. Will pass on to day shift to attempt again. Home med list updated.
--- NOTE | 2016-06-12 09:38 | NUR ---
UPDATE: Pt's reports that patient has advaned directive at [facility]. Called [phone] and spoke with nurse, Gill and she will fax over.
--- NOTE | 2016-06-12 12:25 | NUR ---
6611 Introduced self/role to patient's sister and her daughter, currently stepped out. They are not sure of the plans for rehab but might want him closer to home which is [place] - that would [place]. Will visit with them again after surgery but they can start thinking about their wishes. Would anticipate a Sunday or discharge. Wrote my name on the marker board, will continue to follow.
--- NOTE | 2016-06-12 15:46 | NUR ---
Significant Event: PT ALERT, DISORIENTED X3. HX DEMENTIA. AT BEDSIDE. VSS ON RA. ORDERS TO KEEP SATS >90%. TELEMETRY PLACED, CALLED X1 FOR 4 BEAT BIFOCAL PVC JUST PRIOR TO HEADING TO OR. IV SALINE LOCKED. PRN PERCOCET X1 AT 0945 FOR PAIN. PT SLEEPING ON REASSESSMENT. PETER PATENT, 200ML OUTPUT. HAS BEEN NPO ALL DAY. PLAN IS TO TRANSFER TO AFTER SURGERY. Follow up: POST OP
--- NOTE | 2016-06-12 21:21 | NUR ---
LATE ENTRY: 190 HEART RATE ELEVATED TO 107. 0 INITIATED PAIN MED IV. 0 NO CHANGE TO HEART RATE. 1999 CALL PLACED TO HOSPITALIST R/T HEART RATE IN 140'S. ORDERS RECIEVED. PATIENT DENIED CHEST PAIN. DID TELL ME HE HAD HIP PAIN AND WAS LAST MEDICATED AT 1945.
[2016-06-13 04:42] LABS: HEMATOCRIT 38.6 % (33.0-50.0); HEMOGLOBIN 12.6 g/dL (11.0-16.0)
--- NOTE | 2016-06-13 04:53 | NUR ---
Significant Event: ALERT TO SELF, AND PLACE OCCASIONALLY. VSS ON 3L OF O2. LUNGS CLEAR AND DIMINISHED. IN AFIB. HR HAS BEEN RANGING FROM 70S-130S. WHEN ABOVE 110 LOPRESSOR WAS GIVEN AND HR CAME BACK DOWN TO 70S-90S. K PHOS STARTED PO FOR LOW PHOSPHATE. 250 OUT OF PETER. STARTED IV FLUID AT 60ML/HR. RIGHT HIP PINNING. MEPILEX DRESSING C/D/I. REFUSED TO DRINK WATER THIS SHIFT. Q2 NEUROVASCULAR CHECKS X24 HOURS. Q2 DESOUZA. FOOT SCDS INTACT. ICE TO RIGHT HIP INTERMITTENTLY. Follow up:
--- NOTE | 2016-06-13 11:16 | NUR ---
Introduced self and CM role to Ever's and daughter Garrick, who was at bedside. Ever was sleeping during my visit so I talked with his and daughter. I let them know that I was consulted to help with SNF placement upon dismissal. , Spring, tells me that they would like for him to go back [place] [facility], but understands that he will need more help than what the [facility] can give him. I let her know that I would look into SNFs here in [place] if that is where they were wanting him to stay. Spring and daughter both agree that they would ultimately like for him to go back to [facility] but in the meantime would like for me to look into SNFs in [place] and [place]. I let them know that I would fax referrals to [facility], [facility] and [facility]. I was notified earlier this week that [facility] wasn't taking admission so I wouldn't be faxing them one, family was fine with this. They would also like for me to look into [facility] as well as that is closer to [place] for 's purposes. Plan to fax referrals to all four SNFs listed above as soon as therapies have seen him today so I am able to include their notes in my referrals. Let and daughter know that I would update them as soon as I heard back from SNFs. I also encouraged them to go and look at the SNFs in town to see which ones they might want to go with. No other questions, needs or concerns. CM to continue to follow and assist. Plan for SNF.
[2016-06-13 13:42] LABS: BICARBONATE 23.9 mmol/L (18.0-23.0); PCO2 36 mmHg (35-45); PO2 69 mmHg (80-90)
--- NOTE | 2016-06-13 18:43 | NUR ---
Significant Event: Patient lethargic thorughout shift. Able to give name 1 X. Oxygen 3L by nasal cannula. SBP 100's, 90's and 122. HR 80's and 90's. Suction at bedside. Pureed diet, nectar thick fluids, no straws. Refuses meals. Conte pulled at 1010 with 175 ml in conte. Bladder scan done at 1600 with a reading of 92 ml. No voids since conte has been pulled. Up with full lift. Surgical dressing on right hip clean dry and intact. Medications crushed in applesauce. Family has been at bedside throughout the shift. Follow up:
--- NOTE | 2016-06-14 04:00 | NUR ---
Significant Event: Alert to self occassionally. mumbles uncomprehendable sayings occassionaly. vss on 3L of o2. currently in afib. keep HR less than 110- give lopressor if greater than 200. x3 moderate voids - incontinet. morphine give x2 with relief noted. lethargic all of shift. pureed nector thick with no straws. generalized weaknes noted. dressing to right hip c/d/i. Follow up:sputum sample needed.
[2016-06-14 06:15] LABS: BASOPHIL # 0.1 K/uL (0.0-0.2); BASOPHIL % 0.6 %; EOSINOPHIL # 0.4 K/uL (0.0-0.5); EOSINOPHIL % 4.7 %; HEMATOCRIT 36.1 % (33.0-50.0); HEMOGLOBIN 11.7 g/dL (11.0-16.0); IMMATURE GRANULOCYTE % 0.5 %; LYMPHOCYTE # 0.5 K/uL (0.8-4.0); LYMPHOCYTE % 6.4 %; MCH 28.7 pg (27.0-34.0); MCHC 32.4 gm/dL (32.0-36.5); MCV 88.7 fl (83.0-98.0); MONOCYTE # 1.2 K/uL (0.0-1.0); MONOCYTE % 14.6 %; MPV 10.4 fl (9.4-12.4); NEUTROPHIL % 73.2 %; NRBC % 0 /100WBC (0-0.00); PLATELET COUNT 118 K/uL (150-450); RBC 4.07 M/uL (3.50-5.50); RDW-CV 12.7 % (11.9-14.6); WBC 8.2 K/uL (4.0-11.0)
[2016-06-14 06:29] LABS: ANION GAP 11.1 (10.0-19.0); BLOOD UREA NITROGEN 24 mg/dL (6-24); CALCIUM 8.1 mg/dL (8.5-10.5); CHLORIDE 111 mMol/L (96-110); CO2 25 mMol/L (22-32); CREATININE 0.9 mg/dL (0.6-1.3); ESTIMATED GFR (MDRD EQUATION) > 60; MAGNESIUM 2.1 mg/dL (1.8-2.6); POTASSIUM 4.1 mMol/L (3.7-5.1); SODIUM 143 mMol/L (135-145)
[2016-06-14 06:36] LABS: PHOSPHORUS 1.6 mg/dL (2.5-4.9)
--- NOTE | 2016-06-14 13:01 | NUR ---
Call from Taryn at [facility], she tells me that they only have a private room open up on the memory care unit for skilled therapies available right now, but she would be willing to come and assess him for possible admission later today. I let her know that this was fine to come up and see him and family. Will follow up with Taryn later today to see what they determine re:acceptance.
--- NOTE | 2016-06-14 15:35 | NUR ---
ST attempted to see patient x2 sessions. A.M. session pt. unable to arouse and stay awake to safely tolerate trials. Pt's present and reported pt. did not sleep well last night and therefore, fatigue. Pt. refused breakfast and held trials in mouth with need to be suctioned by nsg. per 's report. P.M. session, pt's and family present and stated pt. just laid down in bed and finally resting soundly. Pt's reported "rough day all day." Pt's report heart at 157 BPM and txst observed still at 120+ BPM at rest. ST reported plan to follow-up tomorrow 2/2 pt's medical status and fatigue. Pt's and family agreed. Nsg. requested "hold" on tx for remainder of day.
--- NOTE | 2016-06-14 19:06 | NUR ---
Significant Event: DNR/DNI STATUS NOW. VSS, HR 97-136, AFIB. LOPRESSOR 5MG IV X 2. CARDIZEM GTT AT 5MG/HR STARTED AT 1545. PT TOLERATING WELL, HR 76-87. LUNGS SOUNDS EXPIRATORY WHEEZES IN UPPER LOBES THIS AM, LASIX 20MG AT 1150, LUNGS SOUND CLEAR THROUGHOUT AT 1500. CXR WNL. K+ IV GTT GIVEN OVER 5 HOURS. AROUSES EASILY, MUMBLES, FIDGETS WITH BLANKETS, CLOTHING. MORPHINE 1MG FOR RESTLESSNESS, DOZES AT TIMES. DSG TO RIGHT HIP CHANGED BY ORTHO PA, CSM ADEQUATE TO LOWER EXTREMITY. TX WITH MECHANICAL LIFT. PT NOT FED, OR GIVEN ANY PO MEDS, DUE TO HIS RESTLESSNESS/CONFUSION. AT 1600 WAS MORE ALERT, ATE SOME ICE CREAM FED BY HIS DAUGHTER, TOLERATED WELL, THEN SLEPT. Follow up:MONITOR,
[2016-06-15 04:18] LABS: HEMATOCRIT 32.7 % (33.0-50.0); HEMOGLOBIN 10.7 g/dL (11.0-16.0)
[2016-06-15 04:31] LABS: ANION GAP 8.9 (10.0-19.0); BLOOD UREA NITROGEN 30 mg/dL (6-24); CHLORIDE 114 mMol/L (96-110); CO2 25 mMol/L (22-32); CREATININE 0.9 mg/dL (0.6-1.3); ESTIMATED GFR (MDRD EQUATION) > 60; MAGNESIUM 2.3 mg/dL (1.8-2.6); PHOSPHORUS 2.9 mg/dL (2.5-4.9); POTASSIUM 3.9 mMol/L (3.7-5.1); SODIUM 144 mMol/L (135-145)
--- NOTE | 2016-06-15 05:04 | NUR ---
Significant Event: The patient is alert, aphasic and mumbles. Moves spontaneously and at times to command. Gets agitated and tried to hit at times. Up with Full Lift, Q2H turns. VSS. On 3L oxygen per NC. Cardizem gtt infusing at 5mg/hr. Pain to the right hip gave Tylenol at 2200 and morphine at 0317. Crushed meds and gave with ice cream. PIV to the right wrist infusing. PIV to the Left forearm saline locked. Dressing to the Right hip with shadow drainage marked. Bruising to bilateral arms. 1+ Edema in the Right leg. Incontinent of urine. A-fib/paced. 1:1 feeder, pureed diet, nectar thick liquids with no straws. Follow up:
--- NOTE | 2016-06-15 12:28 | NUR ---
1000 Talked with Ever's this morning. She tells me that she and her daughter toured [facility] and [facility] and they like [facility] better than [facility] so that would be the first choice. She tells me that all of them can come and see him if they want to and then family will make the choice after visiting with them. 1230 Call from Harriet at [facility] and Taryn at [facility], they both are coming to assess Ever for possible admission later today and then will let me know before the end of the day if they can accept to their facility when he is medically cleared for dismissal. CM to continue to follow and assist.
--- NOTE | 2016-06-15 13:45 | NUR ---
A - CALL RECEIVED FROM [employer] REQUESTING SUPPLEMENTS. R) HIP FX. DEMENTIA. APHASIC. 1:1 @ MEALS - REFUSING MEALS. PER [employer] DID DRINK ENTIRE BOTTLE OF NECTAR THICKENED ENSURE THIS AM. HT: 70" WT: 154# BMI: 22.1. LABS: BUN/CR 30/0.9, ALB 3.4, PREALB 16. MEDS: ZYPREXA, SYNTHROID, NAMENDA, BOWEL/NAUSEA. DIET: PUREED, NECTAR LIQUIDS. INTAKE: REFUSED SINCE ADMIT. NEEDS: 4906-6137 KCAL (25-30 KCAL/KG), 70-84 G PRO (1-1.2 G/KG), 2100 ML FLUID (30 ML/KG) D - INADEQUATE NUTRIENT INTAKE R/T DECREASED APPETITE, DIFFICULTY SWALLOWING AEB INTAKE RECORD, SWALLOW EVAL RESULTS. I - GOAL FOR INCREASED ORAL INTAKE WILL ADD MIGHTY SHAKE TID WILL ADD MAGIC CUP @ L&D IF CONTINUES TO REFUSE WILL NEED TO CONSIDER ENTERAL NUTRITION. M/E - WILL MONITOR INTAKE F/U IN 2-4 DAYS.
--- NOTE | 2016-06-15 15:55 | NUR ---
SIGNIFICANT EVENT: Pt has baseline dementia. Pt has been combative/agitated throughout shift-Zyprexa given x1. Speech is mumbled/aphasic. Pt moves spontaneously with moderate strength-at times follows commands. Cardizem gtt infusing at 5mg/hr in right wrist PIV;Heparin at 800u/hr infusing in left forearm PIV. SBP 140-150's; HR 710-110. Afib/paced. Lower extremity pulses 1+. Edema to right leg 1+. Pt on 2-3L throughout shift. Lungs clear to clear/diminshed. Upon first assessment wheezes on expiration were noted. Pt on pureed diet; 1:1 feeder; nectar thickened liquids; no straws. Pt had a small BM today. Continue to monitor for decreased appetite. Pt incontinet of urine/stool. Pt has bruising on bilateral arms. Mepilex dressing to right hip changed yesterday-marked drainage. Morphine given x1. FOLLOW UP: Continue with plan of cares per MD orders.
[2016-06-16 04:47] LABS: HEMATOCRIT 32.1 % (33.0-50.0); HEMOGLOBIN 10.4 g/dL (11.0-16.0)
--- NOTE | 2016-06-16 04:58 | NUR ---
Significant Event: Patient disoriented x 3. Will not answer orientation questions. Will make incomprehensible sounds/words. Few words that are appropriate in conversation. Becomes agitated with cares. Moves all extremities spontaneously. Hand grasps but not to command. No commands followed. Lungs clear on 2.5 L of 02. Incontinent of bowel and bladder. Pureed diet, nectar thick liquids. No straws. Smear this shift. Poor appetite. Takes meds well crushed with ice cream. Total lift per nursing. Mepilex dressing intact with shadow drainage to right hip. PIV to left fa running heparin at 1000 units. PIV to right wrist running cardizem at 5 ml/hr. Follow up: Continue to monitor
--- NOTE | 2016-06-16 10:27 | NUR ---
Call to Myriam at [facility], wanted to know if she came over to assess Ever yesterday and if they felt like they could accept upon dismissal. Myriam tells me that she didn't come over yesterday as she got busy with other things, but is going to come over today within the hour. I let her know that this was fine and to please contact me after she had visited with Ever and his family to let me know if they can accept or not. CM to continue to follow and assist.
--- NOTE | 2016-06-16 16:51 | NUR ---
Significant Event: Alert at times, disoriented X 3. O2 by nasal cannula 1L. SBP 100's and 110's. HR 70's. Peripheral IV to left forearm, flushes well and saline locked. Peripheral IV to right wrist, flushes well with good blood return, saline locked. Medication crushed with ice cream (likes chocolate). Pureed diet, nectar thick liquids. Heparin drip stopped at 0930 and cardizem drip stoped at 0930. Percocet given X 1 at 0942. Zprexa at 1526 for agitation. Tramadol at 1452. Tylenol at 1228 and is now scheduled. at bedside throughout shift. Up with full lift, 2 assist. Follow up:
--- NOTE | 2016-06-17 06:01 | NUR ---
Significant Event: Patient is not alert or oriented. Words are garbled. Has 2L O2 per NC. VSS. IV to L) FA SL and R) wrist SL. Meds should be crushed and put with chocolate ice cream. Patient rested most of the night. Awoke once and became aggitated. Scheduled Tylenol. Up with full lift, 2 assist. Last repositioned to back. Inc of urine and stool. Puree diet, nectar thick liquid, 1:1 feeder. Follow up: Continue to monitor.
--- NOTE | 2016-06-17 10:44 | NUR ---
A - NUT F/U. NOT A/O. DISORIENTED. 1:1 @ MEALS. DECREASED APPETITE. LIKES CHOCOLATE ICE CREAM. LABS: BUN/CR 30/0.9. MEDS: ZYPREXA, SYNTHROID, REMERON, NAMENDA, BOWEL/NAUSEA. DIET: PUREED, NECTAR LIQUIDS. INTAKE: REF-25%, MOSTLY REFUSED/BITES. MIGHTY SHAKE TID, MAGIC CUP @ L&D. NEEDS: 2479-2165 KCAL, 70-84 G PRO D - INADEQUATE NUTRIENT INTAKE R/T DECREASED APPETITE, NEURO STATUS, DIFFICULTY SWALLOWING R/T INTAKE RECORD, DISORIENTED, NEED FOR ALTERED TEXTURES/CONSISTENCY. PT IS UNABLE TO MEET NEEDS ORALLY. I - GOAL FOR INCREASED NUTRIENT INTAKE. REC JEVITY 1.5 @ 50 ML/HR W/ 150 ML WATER Q4 HRS TO PROVIDE 1800 KCAL, 77 G PRO, 912 ML FREE WATER (+FLUSH) M/E - WILL MONITOR POC, INTAKE. F/U IN 2-4 DAYS.
--- NOTE | 2016-06-17 13:51 | NUR ---
Significant Event: Patient up in chair for a while this a.m. and then back to bed this afternoon. Has had family and friends visit throughout the day. Has denied pain and no nonverbal signs of pain noted. Patient incontinent of both bowel and bladder. Cardizem CD changed to plain cardizem so nursing can crush med and also colace changed over to senna so we can crush it also. Dr. Haider here and lab ordered for a.m. Follow up: Continue to monitor.
--- NOTE | 2016-06-18 04:58 | NUR ---
Significant Event: Alert to self, able to state first and last name appropriately. At times able to state , unsure of month/year or location. PERRLA 3mm brisk. Unable to assess for N/T or COTO, does state occasionally having pain, gave scheduled Tylenol; relief noted. Takes medications crushed in chocolate pudding/ice cream without difficulty. [place] thick, pureed diet with 1:1 feeder. Systolic 110-120's, HR 70-80's, paced. L.S. clear throughout on RA. B.S. active, last BM 06/17, incontinent of urine and bowel. PIV L) + R) hand SL'd. Mepilex to R) lateral hip, marked sanguineous drainage. Full lift for transfers, gave bed bath this AM. Follow up: Monitor HR's and S/S of pain, turn Q2Hrs. Placement for SNF Sunday?
[2016-06-18 05:00] LABS: BASOPHIL % 0.7 %; EOSINOPHIL # 0.4 K/uL (0.0-0.5); EOSINOPHIL % 6.9 %; HEMOGLOBIN 11.3 g/dL (11.0-16.0); IMMATURE GRANULOCYTE % 0.5 %; LYMPHOCYTE # 0.8 K/uL (0.8-4.0); LYMPHOCYTE % 13.7 %; MCH 28.7 pg (27.0-34.0); MCHC 32.3 gm/dL (32.0-36.5); MCV 88.8 fl (83.0-98.0); MONOCYTE # 0.8 K/uL (0.0-1.0); MONOCYTE % 13.7 %; MPV 9.4 fl (9.4-12.4); NEUTROPHIL # (ANC) 3.6 K/uL (1.4-9.0); NEUTROPHIL % 64.5 %; NRBC % 0 /100WBC (0-0.00); RBC 3.94 M/uL (3.50-5.50); RDW-CV 12.4 % (11.9-14.6); WBC 5.5 K/uL (4.0-11.0)
[2016-06-18 05:13] LABS: PLATELET COUNT 185 K/uL (150-450)
[2016-06-18 05:15] LABS: ANION GAP 11.1 (10.0-19.0); BLOOD UREA NITROGEN 19 mg/dL (6-24); CALCIUM 8.8 mg/dL (8.5-10.5); CHLORIDE 110 mMol/L (96-110); CO2 29 mMol/L (22-32); CREATININE 0.7 mg/dL (0.6-1.3); ESTIMATED GFR (MDRD EQUATION) > 60; MAGNESIUM 2.1 mg/dL (1.8-2.6); POTASSIUM 4.1 mMol/L (3.7-5.1)
[2016-06-18 05:16] LABS: SODIUM 146 mMol/L (135-145)
--- NOTE | 2016-06-18 14:12 | NUR ---
Significan Event: Patient up to chair for a while and then repositioned back to bed. Continues to be incontinent of bladder, but has not had a BM today. Pericare provided and patient repositioned. Vitals stable and no temp noted today. Only bites for breakfast and has slept through lunch. Patient does wake up with repositioning but does not want anything to eat. at bedside and a few other visitors have been through today but patient continues to sleep. Scheduled tylenol given to patient but nothing stronger has been given for pain. Patient has not given any indication that he is having pain and would need anything stronger. Did get order for ensure chocolate pudding to be given with meals for nursing to give pills in. Tried to feed patient more of pudding after meds given, but patient not wanting any where as yesterday patient did eat a couple of bites extra. Follow up: Continue to monitor.
--- NOTE | 2016-06-19 05:38 | NUR ---
Significant Event: Oriented to self. History of dementia and able to follow some commands. 2A full lift for transfers. Frequent repositioning and incontinence. Continuous D5W throught left wrist at 50ml/hr. Ate 75% of magic cup tonight but refused all other food today. Sips of nectar thickened water (no straws). Takes medications crushed with pudding. VSS. Mepilex dressing c/d/i to right hip. Follow up:
--- NOTE | 2016-06-19 09:24 | NUR ---
A - NUTRITION F/U. NO NEW LABS. HX OF DEMENTIA. DIET: PUREE NECTAR THICK W/ MIGHTY SHAKES TID AND MAGIC CUPS BID. 1:1 FEEDER. INTAKE REFUSED TO 25%. D - INADEQUATE ORAL INTAKE R/T DIFFICULTY SWALLOWING AND POOR APPETITE AEB INTAKE RECORD. I - GOAL: 25-50% INTAKE BY DISMISSAL. M/E - CONSIDER DOBHOFF AND TF W/ JEVITY 1.5 TRA 50 ML/HR W/ 150 ML H20 EVERY 4 HRS. CONT TO ENCOURAGE PO.
--- NOTE | 2016-06-19 13:46 | NUR ---
Called Barber at [facility], left him a VM asking if he was going to come and look at Ever for possible admission as he was ready for discharge and I had faxed them/tried calling them last week re:Ever's referral. I got a VM while on another call from Barber that states he was going to come up and evaluate Ever today at [phone]. I also called to talk with someone at [facility] as well in re:the referral I had sent them last week. DON states that she got the referral, but is still looking over it for possible admission. I talked with Ever's and daughter at bedside, updated them to the above, they were fine with this. I also asked them if it would be ok if I faxed a referral over to [facility] as I had heard they were taking admission this week. Both where in agreement with this. I gathered information, talked with Krystyna at [facility], she tells me that they have openings and she would take a look at the information and then get back to me. I let her know that this was fine. CM to continue to follow and assist.
--- NOTE | 2016-06-19 14:37 | NUR ---
I tried to take B/p at 1100 and at 1400 and patient refused. He is being combative and pinching and grabbing on and sqeezing hard.
--- NOTE | 2016-06-19 14:38 | NUR ---
Significant Event: Disoriented to time and place. Mepilex dressing to R) hip has shadow drainage. Has Dementia. Full lift. suppose to be TTWB to R) leg. Mechanical soft diet with thickened liquids. No straws. Incontinent of stool and urine. Fluids stopped today. Encourage snacks and fluids. at bedside. Follow up: Looking for placement.
--- NOTE | 2016-06-20 04:53 | NUR ---
Significant Event: Patient alert to self. Occasionally able to understand speech, otherwise garbled speech. Occassionally follows commands. Moves all extremities spontaneously. Mepilex dressing to right hip c/d/i. Mechanical soft diet with nectar thick liquids, no straws. Only ate a couple bits of supper. 1:1feeder. Pills crushed in applesauce or pudding. VSS on room air. Paced heart rhythm. Up full lift. Follow up: looking for placement.
--- NOTE | 2016-06-20 11:21 | NUR ---
JESSA and JEAN MARIE from [facility] came up to eval this morning, they state that they think they will be able to accept they just need to go back and look at a couple more things and then they will get back to me on final word of acceptance. I also called Zeenat at [facility] to see if she was done looking at the referral and what they had decided. Zeenat tells me that at this time they can not accept. I updated to this. I let her know that once I heard back from [facility] I would let her know and then we would set up transportation from that standpoint. is fine with this. CM to continue to follow and assist.
--- NOTE | 2016-06-20 19:53 | NUR ---
Significant Event: alert. oriented to name. a lot of what he says is unintellible but some things are clear. follows some commands. tele with paced heart rhythm. mepilex dsg to right hip C/D/I. pedal pulses palpable. full lift with transfers. incontinent of bowel and bladder. moderate BM this shift. mechanical soft diet with nectar thick liquids. assistance with feeding. TTWB to right- does not maintain when standing. takes meds crushed in pudding or applesauce. plan- transfer to SNF in the morning.
--- NOTE | 2016-06-21 01:48 | NUR ---
Significant Event: PATIENT ALERT TO SELF. UNCOMPREHENSIBLE SPEECH MOST OF TIME. OCCASIONALLY ABLE TO UNDERSTAND SPEECH. OCCASIONALLY FOLLOWS COMMANDS. MOVES ALL EXTREMITIES SPONTANEOUSLY. UP FULL LIFT. Q2 [place]. INCONTINENT OF BMS AND URINE. MECHANICAL SOFT DIET WITH NECTAR THICK LIQUIDS, NO STRAWS. TAKES MEDS CRUSHED IN APPLESAUCE OR PUDDING. 1:1 FEEDER. VSS ON ROOM AIR. SLIGHTY HYPOTENSIVE. PACED HEART RHYTHM. MEPILEX DRESSING TO RIGHT HIP C/D/I. BRUISING AROUND DRESSING. FIGITY. RESTLESS. Follow up: DISCHARGE TO SNF AT 0900.
--- NOTE | 2016-06-21 12:47 | NUR ---
Ever was up in his chair and dress this morning when I got up to the floor. Talked with HARPER Orellana and she states that he is all ready to go, just waiting on the [place] van to get here to pick him up. RN to RN report was called in after he left by HARPER Orellana. Orders were again faxed to [facility] by kika Meraz prior to him leaving. No other questions, needs or concerns.
== END 2016-06-21 09:33 | DRG 480 ==
LOC: GACC 17:55 → GNTU 19:51 → GMSU 19:51 → G3N 06-12 17:02 → GNTU 06-12 20:16
PROVIDERS: Family Medicine; Physician Assistant; Physician Assistant Medical; ADMIT Hospitalist
PROC: 0QS634Z Reposition Right Upper Femur with Internal Fixation Device, Percutaneous Approach (ICD-10-PCS; principal; 2016-06-12)
DX: S72.011A Unspecified intracapsular fracture of right femur, initial encounter for closed fracture (principal); G93.40 Encephalopathy, unspecified; J96.01 Acute respiratory failure with hypoxia; I47.2 Ventricular tachycardia; I50.22 Chronic systolic (congestive) heart failure; F05 Delirium due to known physiological condition; D69.6 Thrombocytopenia, unspecified; E78.5 Hyperlipidemia, unspecified; F03.90 Unspecified dementia, unspecified severity, without behavioral disturbance, psychotic disturbance, mood disturbance, and anxiety; I25.5 Ischemic cardiomyopathy; I48.0 Paroxysmal atrial fibrillation; Z66 Do not resuscitate; Z79.01 Long term (current) use of anticoagulants; F02.80 Dementia in other diseases classified elsewhere, unspecified severity, without behavioral disturbance, psychotic disturbance, mood disturbance, and anxiety; I25.10 Atherosclerotic heart disease of native coronary artery without angina pectoris; Z95.0 Presence of cardiac pacemaker; E03.9 Hypothyroidism, unspecified; N40.0 Benign prostatic hyperplasia without lower urinary tract symptoms; W18.30XA Fall on same level, unspecified, initial encounter; Y92.129 Unspecified place in nursing home as the place of occurrence of the external cause
CPT/HCPCS: C1713; C8929; G0237; J0690; J1644; J1650; J1940; J2270; J3010; J7030; J7050; J7060; Q9957

== ENCOUNTER → 2016-06-11 | Outpatient (CLI) | payer MEDICARE, OTHER ==
[~2016-06-11] MED LIST: ASPIRIN LO-DOSE81 MG PO; CARDIZEM CD)(T180 MG PO; ELIQUIS2.5 MG PO; HYDROCORT 1% CR30 GM TOP; LEVOTHROID (SY25 MCG PO; NAMENDA10 MG PO; NITROSTAT0.4 MG SL; PRESERVISION A1 EACH PO; Q-TUSSIN DM SY473 ML PO; REFRESH TEARS15 ML OPHTH; REMERON15 MG PO; TYLENOL325 MG PO; VITAMIN D1000 UNIT PO; ZOCOR40 MG PO
== END | disposition disaster alternative care site (69) ==
LOC: GAMB 17:31
DX: S79.911A Unspecified injury of right hip, initial encounter (principal); M25.551 Pain in right hip; J44.9 Chronic obstructive pulmonary disease, unspecified; F03.90 Unspecified dementia, unspecified severity, without behavioral disturbance, psychotic disturbance, mood disturbance, and anxiety; Z79.899 Other long term (current) drug therapy; Z79.82 Long term (current) use of aspirin; W19.XXXA Unspecified fall, initial encounter
CPT/HCPCS: A0425; A0429